=== PATIENT | male | born 1975 | race African-American/Black ===

== ENCOUNTER 2020-07-25 02:41 | Emergency (ER) | payer OTHER ==
[~2020-07-25] VITALS: Ht 188 cm; Wt 63.6 kg
[2020-07-25] MEDS ORDERED: DIAZEPAM 5 MG TABLET ONE (03:16)
[2020-07-25] MEDS ORDERED: OXYcodone/APAP 5/325MG TABLET ONE (03:16)
[2020-07-25] MEDS ORDERED: KETOROLAC 60 MG/2 ML ONE (03:16)
--- NOTE | 2020-07-25 03:24 | NUR ---
pt came into ed tonight due to low back pacin, pt reports it has been recurrent but got worse since earlier today when he was getting up off the floor and "tweaked it when i twisted wrong". pt appears to be uncomfortable and this time, reports decreased mobility, placed on spo2/bp monitoring and medicated per oct. pt to radiology at this time. wctm.
[2020-07-25] MEDS ORDERED: KETOROLAC 60 MG/2 ML IM ONE (03:30)
[2020-07-25] MEDS ORDERED: DIAZEPAM 5 MG TABLET PO ONE (03:30)
[2020-07-25] MEDS ORDERED: OXYcodone/APAP 5/325MG TABLET PO ONE (03:30)
--- NOTE | 2020-07-25 04:21 | NUR ---
pt nad, resting on gurney, states pain is decreased, appears more comfortable at this time. call light on lap, bed in lowest, wctm.
[2020-07-25 04:54] VITALS: BP 112/68
--- NOTE | 2020-07-25 04:55 | NUR ---
Patient given discharge instructions and they have confirmed that they understand the instructions. Patient ambulatory with steady gait. NAD, REPORTS PAIN IS DECREASED, PROVIDED WORK NOTE PER REQUEST. DENIES ADDITIONAL QUESTIONS OR NEEDS, NO PERSONAL BELONGINGS LEFT IN ROOM AT THE TIME OF DC.
== END 2020-07-25 04:58 | disposition home or self-care (01) ==
LOC: ED 04:29
DX: S39.012A Strain of muscle, fascia and tendon of lower back, initial encounter (principal); Z87.891 Personal history of nicotine dependence; X58.XXXA Exposure to other specified factors, initial encounter; Y93.89 Activity, other specified; Y92.89 Other specified places as the place of occurrence of the external cause; Y99.8 Other external cause status
CPT/HCPCS: 72110; 96372; 99283; J1885

== ENCOUNTER 2020-12-12 21:34 | Emergency (ER) | payer OTHER ==
[~2020-12-12] VITALS: Ht 188 cm; Wt 65.4 kg
--- NOTE | 2020-12-12 21:46 | NUR ---
EKG DONE IN TRIAGE.
--- NOTE | 2020-12-12 22:26 | NUR ---
PT BIB SELF VIA POV FOR COMPLAINT OF CHEST PAIN/PRESSURE ON & OFF "FOR YEARS". PT STATES THE PAIN RADIATES TO L ARM AND THAT HE'S COME TO THE ED FOR SAME COMPLAINT, NEVER RECEIVED ANY DX. CAME FROM WORK ([employer]), REPORTS FSBS "WAS 57 AT WORK BUT THEN IT WENT UP TO 82 AFTER SOME GLUCOSE." PT ALSO REPORTS HE HAD 324 MG ASA AT WORK. PT RESTING IN [facility], MONITORING IN PLACE, EKG DONE, LAB AT BEDSIDE TO DRAW, WCTM.
[2020-12-12] MEDS ORDERED: ASPIRIN 81 MG TABLET CHEW PO ONE (22:30)
[2020-12-12 22:45] LABS: BASOPHILS % (AUTO) 1 % (0-1); EOSINOPHILS % (AUTO) 4 % (1-7); LYMPHOCYTES % (AUTO) 35 % (22-44); MEAN CORPUSCULAR HGB CONC 33.2 g/dL (33.2-36.2); MEAN PLATELET VOLUME 8.3 fL (7.4-10.4); MONOCYTES % (AUTO) 6 % (2-9); NEUTROPHILS % (AUTO) 54 % (42-75); PLATELET COUNT 211 x10^3/uL (130-400); RED BLOOD COUNT 5.52 x10^6/uL (4.38-5.82); RED CELL DISTRIBUTION WIDTH 14.8 % (9.4-14.8)
[2020-12-12 22:47] LABS: MD NO
[2020-12-12 22:51] LABS: ALANINE AMINOTRANSFERASE 20 U/L (12-78); ALBUMIN 3.6 g/dL (3.4-5.0); ANION GAP 5 mmol/L (5-15); CALCIUM 8.5 mg/dL (8.5-10.1); CHLORIDE 109 mmol/L (98-107); CREATININE 1.03 mg/dL (0.7-1.3)
[2020-12-12 22:56] LABS: ALKALINE PHOSPHATASE 68 U/L (45-117); BILIRUBIN,TOTAL 0.2 mg/dL (0.2-1.0); TOTAL PROTEIN 7.3 g/dL (6.4-8.2); TROPONIN I < 0.015 ng/mL (0.000-0.045)
[2020-12-12 23:29] VITALS: BP 110/74
== END 2020-12-12 23:45 | disposition home or self-care (01) ==
LOC: ED 22:15
DX: R07.89 Other chest pain (principal); F17.200 Nicotine dependence, unspecified, uncomplicated
CPT/HCPCS: 36415; 71045; 80053; 84484; 85025; 93005; 99285